=== PATIENT | female | born 1960 | race Caucasian/White ===

== ENCOUNTER → 2017-06-26 | Outpatient (CLI) | payer BC | END | disposition home or self-care (01) | LOC: LAB.O 14:33 | PROVIDERS: ATTEND Nurse Practitioner Family | DX: R21 Rash and other nonspecific skin eruption (principal) ==

== ENCOUNTER → 2018-11-20 | Outpatient (CLI) | payer BC, OTHER ==
--- NOTE | 2018-11-21 08:44 | CT ---
Procedure: CT LUNG SCREENING Exam Date: 11/20/2018 Ordering Provider: Matias Galo Clinical Indication: Z87.891 This patient meets eligibility criteria for low-dose CT lung cancer screening. Comparison: None. Technique: Using a multislice scanner, sequential helical axial imaging was obtained in the thorax, 2.5 mm thickness, 2.5 mm separation, from the level of the thoracic inlet through the lung bases without IV contrast. A low dose protocol was utilized: CTDI: 1.76 mGy. 120. kVp. 45 mA. DLP 67.88 mGy centimeters. 2D sagittal and coronal reconstructed images, 6.0 mm thickness, were obtained. This exam was performed according to our departmental dose optimization program which includes use of automated exposure control, adjustment of the mA and/or kV according to patient size and/or use of iterative reconstruction technique. Nodule measurements under 10 mm are given as mean value of 3 axes diameters. FINDINGS: Lungs and large airways: Bilateral small parenchymal blebs more numerous upper lung mackey. Patchy groundglass densities posterior superior segment right lower lobe, but no definite nodules. No abnormal nodules. No masses. Pleura and space: Minimal pleural thickening in the bases. No effusion or pneumothorax. Mediastinum and everardo: evaluation limited by low dose technique and lack of IV contrast. Small nodes. No dominant soft tissue masses. Heart and great vessels: Minimal atherosclerotic calcification in the aortic arch. Chest wall, lower neck, axillae: Evaluation also limited by same factors as described above. Subcutaneous nodule apparently connected to the skin surface upper back to the left of the spine on axial image 3. Bilateral subglandular saline breast implants. Capsules intact where seen. Small axillary nodes. Upper abdomen: Approximately 4.9 x 4.4 cm mass in the medial inferior right hepatic lobe with intermittent calcifications around the capsule. There may be a satellite mass with more calcifications on the superior aspect. Craniocaudal dimension is 4 cm. Density ranges from +18 to +25. 1 cm mass more superiorly and medially in the right lobe has a density of -19 and diameter of approximately 1 cm. Low-density mass in the medial posterior aspect of the lateral segment of the left hepatic lobe measures approximately 3 cm greatest diameter with density of +6.5. No calcifications. Included peritoneal space shows no fluid or soft tissue mass. Included spleen and adrenal glands normal size and density. Osseous structures: Evaluation limited by low dose MIP technique. Endplate ridging at several levels with Schmorl's nodes and minimal spondylosis in the thoracic spine. Arthrosis and possible old injury right sternoclavicular joint. No lytic or blastic lesions. IMPRESSION: 1. No abnormal nodules or masses. Patchy groundglass densities in the superior segment right lower lobe more likely chronic than acute. Centrilobular type emphysematous pattern more prevalent in the upper lobes. [facility] Best Practice recommendations following the lung RADS category system. Please see below for Lung RADS category and FOLLOW-UP.* 2. Low-density masses in the liver the largest 1 has density between cyst and soft tissue and peripheral calcifications. Other regions are cystic. Consider follow-up hepatic ultrasound and or triple phase CT scan of the liver without and with IV contrast. *Lung RADS category Category 1S - No nodule or definitely benign nodules (probability of malignancy less than 1%). Follow-up: Continue annual screening with Low Dose Chest CT in 12 months. Lung RADS Modifier S - Clinically Significant or Potentially Clinically Significant Findings (non lung cancer). Please see 2nd paragraph of the IMPRESSION. 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
== END ==
LOC: CT 08:30
PROVIDERS: ATTEND Family Medicine
DX: Z87.891 Personal history of nicotine dependence (principal); K76.89 Other specified diseases of liver

== ENCOUNTER → 2019-11-24 | Outpatient (CLI) | payer BC, OTHER ==
--- NOTE | 2019-11-24 14:33 | CT ---
Procedure: CT LUNG SCREENING Exam Date: November 24, 2019.+ Ordering Provider: Matias Galo Clinical Indication: PERSONAL HISTORY OF TOBACCO USE . Smoking cessation 10 years. 36 pack years. This patient meets eligibility criteria for low-dose CT lung cancer screening. Comparison: Low-dose CT lung cancer screening exam November 20, 2018. Technique: Using a multislice scanner, sequential helical axial imaging was obtained in the thorax, 2.5 mm thickness, 2.5 mm separation, from the level of the thoracic inlet through the lung bases without IV contrast. A low dose protocol was utilized for BMI less than 30: BMI: 24.2. CTDI: 1.76 mGy. 120. kVp. 45 mA. DLP 63.3 mGy-cm. 2D sagittal and coronal reconstructed images, 6.0 mm thickness, were obtained. This exam was performed according to our departmental dose optimization program which includes use of automated exposure control, adjustment of the mA and/or kV according to patient size and/or use of iterative reconstruction technique. Nodule measurements under 10 mm are given as mean value of 3 axes diameters. FINDINGS: Lungs and large airways: Scattered bilateral blebs in a centrilobular pattern more numerous in the upper lung mackey. Bilateral pleural-parenchymal scarring is stable. Linear density in the right lower lobe on the prior study is a vascular structure on the current study. No abnormal nodules and no masses. No focal/acute infiltrate. Pleura and space: More thickening in the apices bilaterally. Mediastinum and everardo: evaluation limited by low dose technique and lack of IV contrast. Stable nodes in the mediastinum. Heart and great vessels: Negative. Chest wall, lower neck, axillae: Evaluation also limited by same factors as described above. Bilateral subpectoral saline implants. Nodule in the posterior subcutaneous tissues of the back to the left of midline was not scanned on this study. Upper abdomen: Evaluation limited by low-dose technique. Partial visualization of a mass projects on the posterior inferior right liver capsule with the included segment measuring 5.4 x 4.2 cm on the axial image and density +18.3. Rim calcifications. Similar appearing low-density mass with no definite calcifications in the left hepatic lobe measures 3.4 x 3.5 cm with density plus 10.0-11.5. No free fluid and no fatty stranding in the peritoneal cavity. Normal size and density of the adrenal glands and spleen. Osseous structures: Evaluation limited by low dose MIP technique. Spondylosis and scoliosis in the thoracic spine. Arthrosis in some of the joints. Stable since the prior study. IMPRESSION: 1. Centrilobular emphysematous changes are stable. Prior density seen in the right lower lobe is a vascular structure. No abnormal nodules and no masses. No focal infiltrates. Pleural thickening.. [facility] Best Practice Recommendations: please see below for Lung RADS category and FOLLOW-UP.* *Lung RADS category Category 1S - No nodule or definitely benign nodules (probability of malignancy less than 1%). Follow-up: Continue annual screening with Low Dose Chest CT in 12 months. 2 Lung RADS Modifier S - Clinically Significant or Potentially Clinically Significant Findings (non lung cancer). Partially - cystic masses in the inferior right lobe liver with rim calcifications and a smaller mass in the left lobe of the liver without calcifications. No significant change in size over one year interval. Is there history of previous hepatic infection or inflammation? Consider follow-up hepatic ultrasound. Electronically signed by: Zion Soto MD 11/24/2019 2:31 PM [facility]
== END ==
LOC: CT 08:30
PROVIDERS: ATTEND Family Medicine
DX: Z87.891 Personal history of nicotine dependence (principal); R91.8 Other nonspecific abnormal finding of lung field

== ENCOUNTER → 2020-07-05 | Outpatient (CLI) | payer BC ==
--- NOTE | 2020-07-05 16:19 | RAD ---
EXAM DESCRIPTION: Right foot, 3 radiographs CLINICAL HISTORY: Fourth metatarsal fracture FINDINGS/ IMPRESSION: Comparison 06/11/2020 Previous study demonstrated a comminuted fracture of the fourth metatarsal. Fracture plane is still clearly delineated. Fracture margins are smooth along the dorsal and medial aspect. No solid osseous bridging identified Diffuse osteopenia. No other fracture Hallux valgus with mild osteoarthritis of the first MTP joint Electronically signed by: Richard Rivers MD 07/05/2020 4:17 PM CDT
== END ==
LOC: RAD 07:54
PROVIDERS: ATTEND Orthopaedic Surgery
DX: S92.344D Nondisplaced fracture of fourth metatarsal bone, right foot, subsequent encounter for fracture with routine healing (principal); M20.11 Hallux valgus (acquired), right foot; M85.871 Other specified disorders of bone density and structure, right ankle and foot

== ENCOUNTER → 2020-12-01 | Outpatient (CLI) | payer BC, OTHER ==
--- NOTE | 2020-12-01 16:40 | CT ---
Procedure: CT LUNG SCREENING Exam Date: December 01, 2020. Ordering Provider: Matias Galo Clinical Indication: LUNG SCREEN . This patient meets eligibility criteria for low-dose CT lung cancer screening. Comparison: Low-dose CT lung cancer screening examinations November 2019 and October 2018. Technique: Using a multislice scanner, sequential helical axial imaging was obtained in the thorax, 2.5 mm thickness, 2.5 mm separation, from the level of the thoracic inlet through the lung bases without IV contrast. A low dose protocol was utilized for BMI less than 30: BMI: 25. CTDI: 1.76 mGy. 120. kVp. 45 mA. DLP 61 mGy-cm. 2D sagittal and coronal reconstructed images, 6.0 mm thickness, were obtained. This exam was performed according to our departmental dose optimization program which includes use of automated exposure control, adjustment of the mA and/or kV according to patient size and/or use of iterative reconstruction technique. Nodule measurements under 10 mm are given as mean value of 3 axes diameters. FINDINGS: Lungs and large airways: Bilateral blebs in a centrilobular distribution in the lung parenchyma primarily upper lung mackey. Bilateral linear and branching densities in the subpleural regions of peripheral lower lobes not present on the prior study. More prevalent in the right upper lobe and the other lobes. No large groundglass opacities or nodules. No consolidations or air fluid levels. No abnormal nodule and no new mass. Pleura and space: No acute process. Mediastinum and everardo: evaluation limited by low dose technique and lack of IV contrast. Enlarging node in the azygos region with smooth borders measuring 15 x 8 mm. Enlarging node in the aorticopulmonary region and abutting the trachea with smooth margins, measuring 12 x 11 mm. Another pretracheal nodes and AP window nodes are noted. No dominant soft tissue mass. Heart and great vessels: Minimal atherosclerotic calcifications in the aortic arch. Chest wall, lower neck, axillae: Evaluation also limited by same factors as described above. Bilateral subglandular breast implants with smooth capsules were seen and no large folds. Upper abdomen: Evaluation limited by low-dose technique. No free air or free fluid. Again noted is a mass in the posterior subcapsular of the right hepatic lobe with calcified rim and no internal calcifications extending through the liver capsule measuring 5.2 x 4.4 cm. Stable since the prior study. Partial visualization of a left hepatic lobe cyst with no calcifications, measuring 2.1 x 2.8 cm but only partially visualized compared to the prior study. Included adrenal glands and spleen are negative. Osseous structures: Evaluation limited by low dose MIP technique. Spondylosis mid to lower thoracic spine. Minimal arthrosis shoulders clavicles and sternum. IMPRESSION: 1. No interval development of abnormal nodule or mass. Stable emphysematous changes predominantly in the upper lung mackey. [facility] Best Practice Recommendations: please see below for Lung RADS category and FOLLOW-UP.* *Lung RADS category Category 1 - No nodule or definitely benign nodules (probability of malignancy less than 1%). Follow-up: Continue annual screening with Low Dose Chest CT in 12 months. 2. Lung RADS Modifier S - Clinically Significant or Potentially Clinically Significant Findings (non lung cancer). Findings suggesting a interval subpleural pulmonary process developed or developing since the prior lung screening chest CT scan. Commonly reported imaging features of COVID-19 pneumonia are present. Other processes such as influenza pneumonia and organizing pneumonia, as can be seen with drug toxicity and connective tissue disease, can cause similar imaging pattern. Correlate for clinical history of prior COVID 19 or other infection. Enlarging smooth nonreactive appearing mediastinal lymph nodes may be related to the same process. Stable rim calcified cystic mass right hepatic lobe. 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
== END ==
LOC: CT 09:42
PROVIDERS: ATTEND Family Medicine
DX: J43.9 Emphysema, unspecified (principal); Z12.2 Encounter for screening for malignant neoplasm of respiratory organs; Z87.891 Personal history of nicotine dependence